=== PATIENT | male | born 1950 | race Asian ===

== ENCOUNTER 2019-05-07 16:06 | Emergency (ER) | payer OTHER ==
[~2019-05-07] VITALS: Ht 165.1 cm; Wt 73.9 kg
--- NOTE | 2019-05-07 16:10 | NUR ---
PAIN AT LFT WRIST FOR 3 DAYS, SLIGHT SWELLING. WARM TO TOUCH. NORMAL CAP REFILL. CAN MOVE HIS HAND. TOOK TYELENOL AT HOME.PAIN 8/10 AT THIS TIME. SON AT THE BEDSIDE.
--- NOTE | 2019-05-07 16:11 | NUR ---
Patient ambulated to bed 7 with family. RN evaluating patient at bedside.
[2019-05-07 16:15] VITALS: BP 145/103
--- NOTE | 2019-05-07 16:15 | NUR ---
Dr. Ruano evaluating patient at bedside.
[2019-05-07] MEDS ORDERED: KETOROLAC 60 MG/2 ML VIAL IM ONE (16:20)
[2019-05-07] MEDS ORDERED: DEXAMETHASONE 10 MG/ML VIAL IM ONE (16:20)
--- NOTE | 2019-05-07 17:13 | NUR ---
Dr. Ruano evaluating patient at bedside.
--- NOTE | 2019-05-07 17:35 | NUR ---
WRIST SPLINT AND SHOULDER IMMOBOLIZER PLACED ON PTS LEFT ARM
--- NOTE | 2019-05-07 17:53 | NUR ---
Dr. Ruano evaluating patient at bedside.
[2019-05-07 18:00] VITALS: BP 134/92
--- NOTE | 2019-05-07 18:00 | NUR ---
Patient discharged with v/s stable. Written and verbal after care instructions given and explained. Patient alert, oriented and verbalized understanding of instructions. Ambulatory with steady gait. All questions addressed prior to discharge. ID band removed. Patient advised to follow up with PMD. Rx of VOLTAREN XR given. Patient educated on indication of medication including possible reaction and side effects. Opportunity to ask questions provided and answered.
== END 2019-05-07 18:00 | disposition home or self-care (01) ==
LOC: MED 16:06
DX: M10.032 Idiopathic gout, left wrist (principal)
CPT/HCPCS: 73110; 73130; 96372; 99283; J1100; J1885; Q0092